=== PATIENT | male | born 1985 | race Caucasian/White ===

== ENCOUNTER 2016-03-25 15:58 | Emergency (ER) | payer MEDICARE, OTHER ==
[2016-03-25 16:48] VITALS: RESP 16; TEMP 98.6
[2016-03-25 17:04] VITALS: BP 106/76; PULSE 84; O2SAT 94
== END 2016-03-25 17:09 | disposition home or self-care (01) | DRG 93 ==
LOC: ED 15:58
DX: G89.29 Other chronic pain (principal); M54.5 Low back pain; Z98.890 Other specified postprocedural states
CPT/HCPCS: 99282; 99283

== ENCOUNTER 2017-08-31 20:43 | Emergency (ER) | payer MEDICARE, OTHER ==
[2017-08-31 20:51] VITALS: TEMP 98.6
[2017-08-31] MEDS ORDERED: SODIUM CHLORIDE 0.9% 1000ML 1,000 ML IV ONE (21:00)
[2017-08-31 22:58] VITALS: BP 126/84; PULSE 91; RESP 20; O2SAT 91
== END 2017-08-31 22:55 | disposition home or self-care (01) | DRG 605 ==
LOC: ED 20:43
DX: S30.1XXA Contusion of abdominal wall, initial encounter (principal); W20.8XXA Other cause of strike by thrown, projected or falling object, initial encounter
CPT/HCPCS: 74177; 96365; 99283; 99284; Q9967

== ENCOUNTER 2017-10-19 18:25 | Emergency (ER) | payer MEDICARE, OTHER ==
[2017-10-19 18:50] LABS: BASOPHILS % (AUTO) 1 % (0-3); EOSINOPHILS % (AUTO) 1 % (0-9); HEMATOCRIT 44 % (39-53); HEMOGLOBIN 14.2 gm/dl (13.5-17.7); LYMPHOCYTES % (AUTO) 22.4 % (10-50); MEAN CORPUSCULAR HEMOGLOBIN 28.3 pg (27.0-32.0); MEAN CORPUSCULAR HGB CONC 32.6 gm/dl (32.0-36.0); MEAN CORPUSCULAR VOLUME 87 fL (80-100); MONOCYTES % (AUTO) 5.1 % (0-12); NEUTROPHILS % (AUTO) 70.4 % (37-80)
[2017-10-19 18:56] LABS: CALCIUM 8.2 mg/dl (8.5-10.1); CARBON DIOXIDE 28.8 mEq/L (21-32); CREATININE 0.93 mg/dl (0.80-1.30); POTASSIUM 3.7 mMol/L (3.5-5.1)
[2017-10-19] MEDS ORDERED: SODIUM CHLORIDE 0.9% FLUSH 10 ML SOL IV PRN (19:22)
[2017-10-19] MEDS ORDERED: SODIUM CHLORIDE 0.9% 1000ML 1,000 ML IV ONE (19:22)
[2017-10-19] MEDS ORDERED: MORPHINE SULFATE 10 MG/ML SOL IV ONE (19:22)
[2017-10-19] MEDS ORDERED: MORPHINE SULFATE 10 MG/ML SOL ONE (19:32)
[2017-10-19 19:41] VITALS: TEMP 97
[2017-10-19 19:42] LABS: APPEARANCE,URINE Clear; BILIRUBIN,URINE NEGATIVE (NEGATIVE); COLOR,URINE Light yellow; GLUCOSE, URINE (UA) NEGATIVE (NEGATIVE); KETONES,URINE NEGATIVE (NEGATIVE); LEUKOCYTE ESTERASE ,URINE NEGATIVE (NEGATIVE); NITRATE,URINE NEGATIVE (NEGATIVE); OCCULT BLOOD,URINE NEGATIVE (NEG-TRACE); PH,URINE 6.5; UROBILINOGEN,URINE 0.2 (0.2-1.0 EU)
[2017-10-19 19:52] LABS: BACTERIA NEGATIVE (< 1+); CRYSTALS NEGATIVE (0-3 AVE/HPF); EPITHELIAL CELLS 0-1 (SQUAMOUS); RBC,URINE NEG (0-3AV/HPF); WBC,URINE NEG (0-5AV/HPF)
[2017-10-19] MEDS ORDERED: METRONIDAZOLE 500 MG (PREMIX) 500 MG/100 ML SOL IV ONE ×2 (19:57→20:05)
[2017-10-19] MEDS ORDERED: LEVOFLOXACIN 25 MG/ML 500 MG in SODIUM CHLORIDE 0.9% 100 ML 100 ML IV ONE (19:57)
[2017-10-19] MEDS ORDERED: HYDROMORPHONE 1 MG/ML SYRINGE IV STA (19:58)
[2017-10-19] MEDS ORDERED: HYDROMORPHONE 1 MG/ML SYRINGE ONE (20:00)
[2017-10-19] MEDS ORDERED: LEVOFLOXACIN 25 MG/ML SOL IV ONE (20:01)
[2017-10-19] MEDS ORDERED: METRONIDAZOLE 250 MG TAB PO ONE (21:15)
[2017-10-19] MEDS ORDERED: APAP/HYDROCODONE 325/5 TAB PO ONE (21:23)
[2017-10-19] MEDS ORDERED: METRONIDAZOLE 250 MG TAB ONE (21:27)
[2017-10-19] MEDS ORDERED: APAP/HYDROCODONE 325/5 TAB ONE (21:27)
[2017-10-20 20:02] VITALS: BP 123/86; PULSE 98; RESP 18; O2SAT 98
== END 2017-10-19 21:48 | disposition home or self-care (01) | DRG 392 ==
LOC: ED 18:25
DX: K57.32 Diverticulitis of large intestine without perforation or abscess without bleeding (principal); I10 Essential (primary) hypertension; D72.829 Elevated white blood cell count, unspecified
CPT/HCPCS: 74176; 80048; 81001; 85025; 96365; 96366; 96374; 96375; 99283; 99285; J1956; J2270; A9270-GY; J1170; J3490

== ENCOUNTER 2017-10-20 18:56 | Emergency (ER) | payer MEDICARE, OTHER ==
[2017-10-20 19:19] VITALS: BP 131/90; PULSE 103; RESP 20; TEMP 97.2; O2SAT 98
== END 2017-10-20 19:56 | disposition home or self-care (01) | DRG 918 ==
LOC: ED 18:56
DX: T37.3X5A Adverse effect of other antiprotozoal drugs, initial encounter (principal)
CPT/HCPCS: 99282; 99283

== ENCOUNTER 2018-01-12 11:43 | Outpatient (CLI) | payer MEDICARE, OTHER ==
[2017-10-20 19:19] VITALS: O2SAT 98
== END 2018-01-12 11:44 | disposition home or self-care (01) | DRG 556 ==
LOC: CONVCARE 11:43
PROVIDERS: ATTEND Orthopaedic Surgery
DX: M25.561 Pain in right knee (principal)
CPT/HCPCS: 73562

== ENCOUNTER 2018-01-14 07:34 | Day surgery (SDC) | payer MEDICARE, OTHER ==
[2018-01-14] MEDS ORDERED: PROPOFOL 500 MG/50 ML EMU IV ONE (07:42)
[2018-01-14] MEDS ORDERED: LIDOCAINE HCL 1% MPF 30 SOL ONE (07:42)
[2018-01-14] MEDS ORDERED: FENTANYL 100MCG/2ML SOL ONE (07:42)
[2018-01-14] MEDS ORDERED: AMPICILLIN/SULBACTAM 3 GM PDS ONE (08:10)
[2018-01-14] MEDS: BUPIVACAINE/EPI 0.5% 10 ML SOL INFIL ONE ×2 (08:38→08:40)
[2018-01-14 09:20] VITALS: BP 121/96; PULSE 93; RESP 20; TEMP 97.2; O2SAT 97
== END 2018-01-14 09:30 | disposition home or self-care (01) | DRG 607 ==
LOC: SURG 07:34
PROVIDERS: ATTEND Surgery
DX: L73.2 Hidradenitis suppurativa (principal)
CPT/HCPCS: J0295; J3010; A6402; J2001; J2704

== ENCOUNTER 2018-07-18 08:53 | Emergency (ER) | payer MEDICARE, OTHER ==
[2018-07-18 09:10] VITALS: RESP 16; TEMP 95.4
[2018-07-18] MEDS ORDERED: SUMATRIPTAN SUCCINATE 6 MG/0.5 ML SOL SC ONE ×2 (09:37→09:44)
[2018-07-18] MEDS ORDERED: DIPHENHYDRAMINE 50 MG/ML SOL IV ONE (09:37)
[2018-07-18] MEDS ORDERED: SODIUM CHLORIDE 0.9% 1000ML 1,000 ML IV ONE (09:38)
[2018-07-18] MEDS ORDERED: FENTANYL 100MCG/2ML SOL IV ONE (09:39)
[2018-07-18] MEDS ORDERED: ONDANSETRON HCL 4 MG/2 ML SOL IV ONE (09:40)
[2018-07-18] MEDS ORDERED: DIPHENHYDRAMINE 50 MG/ML SOL ONE (09:43)
[2018-07-18] MEDS ORDERED: FENTANYL 100MCG/2ML SOL ONE (09:43)
[2018-07-18] MEDS ORDERED: ONDANSETRON HCL 4 MG/2 ML SOL ONE (09:44)
[2018-07-18 11:11] VITALS: BP 120/99; PULSE 74; O2SAT 95
== END 2018-07-18 11:03 | disposition home or self-care (01) | DRG 103 ==
LOC: ED 08:53
DX: G43.909 Migraine, unspecified, not intractable, without status migrainosus (principal); R11.2 Nausea with vomiting, unspecified
CPT/HCPCS: 96365; 96372; 96374; 96375; 99282; 99284; J1200; J2405; J3010; J3030

== ENCOUNTER 2018-08-07 22:05 | Emergency (ER) | payer MEDICARE, OTHER ==
[2018-08-07 22:24] VITALS: PULSE 102
[2018-08-07] MEDS ORDERED: HYDROMORPHONE 1 MG/ML SYRINGE IV PRN (22:31)
[2018-08-07] MEDS ORDERED: SODIUM CHLORIDE 0.9% 1000ML 1,000 ML IV ONE (22:32)
[2018-08-07 22:57] LABS: BASOPHILS % (AUTO) 1 % (0-3); EOSINOPHILS % (AUTO) 1 % (0-9); HEMATOCRIT 46 % (39-53); HEMOGLOBIN 15.4 gm/dl (13.5-17.7); LYMPHOCYTES % (AUTO) 20.2 % (10-50); MEAN CORPUSCULAR HGB CONC 33.6 gm/dl (32.0-36.0); MEAN CORPUSCULAR VOLUME 86 fL (80-100); MONOCYTES % (AUTO) 5.3 % (0-12); NEUTROPHILS % (AUTO) 72.8 % (37-80)
[2018-08-07 23:04] LABS: CALCIUM 8.7 mg/dl (8.5-10.1); CARBON DIOXIDE 27.9 mEq/L (21-32); CREATININE 0.93 mg/dl (0.80-1.30)
[2018-08-07] MEDS ORDERED: HYDROMORPHONE 1 MG/ML SYRINGE ONE (23:30)
[2018-08-07 23:47] VITALS: O2SAT 98
[2018-08-08 00:57] VITALS: BP 125/85; RESP 16; TEMP 97.6
== END 2018-08-08 00:20 | disposition home or self-care (01) | DRG 730 ==
LOC: ED 22:05
DX: N50.812 Left testicular pain (principal)
CPT/HCPCS: 36415; 74176; 80048; 85025; 96365; 96374; 99283; 99284; J1170